=== PATIENT | male | born 1940 | race Caucasian/White ===

== ENCOUNTER 2017-01-27 11:17 | Inpatient (IN) | payer MEDICARE, OTHER ==
[2017-01-20 09:52] LABS: BASOPHILS 0.1 %; BASOPHILS ABSOLUTE 0.01 10/3/uL (0.0-0.16); EOSINOPHILS 4.1 %; EOSINOPHILS ABSOLUTE 0.29 10/3/uL (0.0-0.53); HEMOGLOBIN 12.4 g/dL (13.6-17.8); IMMATURE GRANULOCYTES 0.3 %; IMMATURE GRANULOCYTES ABSOLUTE 0.02 10/3/uL (0.0-0.11); LYMPHOCYTES 26.1 %; LYMPHOCYTES ABSOLUTE 1.84 10/3/uL (0.67-4.30); MEAN CORPUS HGB CONC 34.2 g/dL (32.0-36.0); MEAN CORPUSCULAR HEMOGLOB 31.9 pg (26.0-34.0); MEAN PLATELET VOLUME 9.4 fL (9.2-13.0); MONOCYTES 7.5 %; MONOCYTES ABSOLUTE 0.53 10/3/uL (0.21-1.20); NEUTROPHILS 61.9 %; NEUTROPHILS ABSOLUTE 4.36 10/3/uL (2.02-8.40); RBC DISTRIBUTION WIDTH 14.7 % (12.0-16.0); RED CELL COUNT 3.89 10/6/uL (4.7-6.1); WHITE BLOOD CELLS 7.1 10/3/uL (4.5-10.5)
[2017-01-20 09:54] LABS: HEMATOCRIT 36.3 % (40.0-51.0); MANUAL DIFF NO %; MEAN CORPUSCULAR VOLUME 93.3 fL (80-100); PLATELET COUNT 274 10/3/uL (150-400)
[2017-01-20 10:04] LABS: BUN (BLOOD UREA NITROGEN) 28 MG/DL (6-23); CALCIUM, SERUM 9.6 MG/DL (8.5-10.4); CHLORIDE, SERUM 107 MMOL/L (96-112); CO2 (CARBON DIOXIDE) 29 MMOL/L (24-34); CREATININE 1.98 MG/DL (0.70-1.30); GFR AFRICAN AMERICAN 37 ML/MIN (>=60); GFR NON AFRICAN AMERICAN 32 ML/MIN (>=60); GLUCOSE, SERUM 123 MG/DL (60-99); POTASSIUM, SERUM 4.2 MMOL/L (3.5-5.3); SODIUM, SERUM 143 MMOL/L (135-148)
--- NOTE | ~2017-01-27 | OP ---
Record Of Operation [facility] [address] [place]. [address] NAME: SUREKHA ROBERSON : 44 STATUS : ADM IN [facility]#: [id number] AGE: 76 ADM/REG DATE : 01/27/17 MR#: [id number] REPORT SERV DATE: 01/27/17 DICTATED BY: CLAUDE LIEV DATE: 01/27/17 REPORT STATUS : Draft TRANSCRIBED BY: MODL DATE: 01/27/17 DATE OF PROCEDURE: 01/27/2017 PREOPERATIVE DIAGNOSES: 1. Right upper pole renal mass. 2. History of left kidney cancer. POSTOPERATIVE DIAGNOSES: 1. Right upper pole renal mass. 2. History of left kidney cancer. PROCEDURE PERFORMED: Robot-assisted laparoscopic right partial nephrectomy. SURGEON: Claude Live M.D. ANESTHESIA: General. ESTIMATED BLOOD LOSS: 200 mL. DRAINS: Chapo-Espana, NG tube, and Simmons catheter. SPECIMENS: Right upper pole partial nephrectomy (intraoperative analysis showed clear parenchymal margin). COMPLICATIONS: None. INDICATIONS: Mr. Roberson is a 76-year-old, who had a laparoscopic left partial nephrectomy two and half years ago. During followup imaging he developed a right upper pole mass that has grown during observation, it is now approximately 28 cm. There was no hilar adenopathy. The left kidney is clear. Chest x-ray clear. He presents for robot-assisted laparoscopic left partial nephrectomy. TECHNIQUE: Informed consent was obtained, he brought to the operating room. After a TAP block was performed. The general endotracheal anesthesia was administered. NG tube was placed as well as Simmons catheter was placed in the left lateral decubitus position with bed flexed. Care was taken to pad pressure points. The abdomen was shaved, prepped, and draped in a sterile fashion. Pneumoperitoneum was established with a Veress needle in the right lower quadrant. I did semi linear incision about 3 cm at his umbilicus where there was a small umbilical hernia. A 12-Italian laparoscopic trocar was placed through the hernia. Laparoscopic inspection showed moderate adhesions in the right upper quadrant. I placed four 8 mm robotic trocars in a linear configuration in the right paramedian position. There were significant adhesions between the underside of the liver and the anterior surface of the right kidney. The colon was reflected medially by incising the hepatic flexure. The ureter was left in situ. I dissected the plane between the liver and the anterior kidney bluntly and with Harmonic scalpel. I took down the lateral attachments bluntly with addition of Harmonic scalpel. The hilar vessels were not mobilized. Record Of Operation [facility] [address] [place]. [address] NAME: SUREKHA ROBERSON : 44 STATUS : ADM IN PAT#: [id number] AGE: 76 ADM/REG DATE : 01/27/17 MR#: [id number] REPORT SERV DATE: 01/27/17 DICTATED BY: CLAUDE LIVE DATE: 01/27/17 REPORT STATUS : Draft TRANSCRIBED BY: MODL DATE: 01/27/17 Once the upper pole of the kidney had been satisfactorily mobilized to allow for visualization of the upper pole mass, I docked the da Gage XI robot. The perinephric fat on the upper pole of the kidney was dissected away with Endo Malika and Bovie. The mass was visualized, it was exophytic at the superior most aspect of the upper pole of the right kidney. Marginal partial nephrectomy was scored with a cautery. Partial nephrectomy was performed with cautery. Bleeders at the base of resection were oversewn with interrupted 2- 0 Vicryl utilizing software performance engineer ties. The specimen was bagged and was brought out through the umbilical incision, only minimal fascial aspirating was necessary for this. Intraoperative pathologic analysis showed a clear deep margin. The remaining perinephric fat was imbricated over the bed of the right upper pole partial nephrectomy, I used running 2-0 Vicryl for this. Hemostasis was confirmed. I placed a Chapo-Espana through a 5 mm trocar in the right upper quadrant. This trocar been used as a liver retractor during the case. The robot was undocked. I removed all trocars. The fascia of the umbilical incision was closed after dissecting the remaining hernia sac. This fascial closure was interrupted 0 Vicryl x3. All wounds were irrigated. The skin was closed with a subcuticular Monocryl. He will keep the NG tube overnight as he had significant ileus after his last case. Plan to keep the Chapo-Espana for this five days so as to rule out a urine leak. There was no visible intrusion into the collecting system. He was extubated, taken to recovery room in satisfactory condition. [facility] Claude Live M.D. / [id number] CC: Claude Live M.D.
--- NOTE | ~2017-01-27 | HP ---
History And Physical [address] [place]. [address] NAME: SUREKHA ROBERSON : 44 STATUS : ADM IN [facility]#: [id number] AGE: 76 ADM/REG DATE : 01/27/17 MR#: [id number] REPORT SERV DATE: 01/27/17 DICTATED BY: CLAUDE LIVE DATE: 01/27/17 REPORT STATUS : Draft TRANSCRIBED BY: MODL DATE: 01/27/17 DATE OF ADMISSION: 01/27/2017 CHIEF COMPLAINT: Right kidney mass. HISTORY OF PRESENT ILLNESS: Mr. Roberson is a 76-year-old with history of a left kidney cancer. He had a laparoscopic left partial nephrectomy several years ago. This showed papillary renal cell carcinoma. During followup, there was an enlarging nodule at the right upper pole kidney, it now measures about 2.8 cm, it enhances on MRI and is presumably a metachronous renal cell in the contralateral kidney. He denies any hematuria, fevers, chills, nausea, or vomiting. He has diastasis recti at his prior extraction site. There is also a small umbilical hernia. PAST MEDICAL HISTORY: Gout and hypertension. MEDICATIONS: Tramadol, Zocor, pindolol, Nifedical, and allopurinol. ALLERGIES: NONE KNOWN. SOCIAL HISTORY: . Nonsmoker. REVIEW OF SYSTEMS: No fevers, chills, nausea, vomiting, chest pain, shortness of breath, weight change, back pain, or hematuria. PHYSICAL EXAMINATION: VITAL SIGNS: Blood pressure 132/101, respirations 14, afebrile. GENERAL: Pleasant, 76-year-old, appearing younger than stated age, in no acute distress. HEENT: Sclerae anicteric. LUNGS: Clear. HEART: Regular rate and rhythm. CHEST: Clear anteriorly. ABDOMEN: Soft, nontender, and nondistended. Diastasis recti is present. There is a small umbilical hernia. No rebound or guarding. No right or left CVA tenderness. EXTREMITIES: No lower extremity edema. LABORATORY DATA: Creatinine is 1.5. IMAGING: MRI abdomen from 11/09/2016, shows a 2.8 x 2.8 cm right upper pole renal lesion. This is solid. No hilar lymphadenopathy. No renal vein involvement. Left kidney shows postsurgical changes, but no recurrent malignancy. Chest x-ray from 01/20/2017, shows no acute process. IMPRESSION: 1. History of left kidney cancer. History And Physical [address] [address] NAME: SUREKHA ROBERSON : 44 STATUS : ADM IN PAT#: [id number] AGE: 76 ADM/REG DATE : 01/27/17 MR#: [id number] REPORT SERV DATE: 01/27/17 DICTATED BY: CLAUDE LIVE DATE: 01/27/17 REPORT STATUS : Draft TRANSCRIBED BY: ADRI DATE: 01/27/17 2. 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 PLAN: We will proceed with left robotic-assisted laparoscopic right upper pole partial nephrectomy. Risks of bleeding, infection, tumor recurrence, benign pathologic findings, and urinoma were discussed. He had ileus after his last surgery requiring an NG tube. We will prophylactically leave an NG tube for 24 hours postop. [facility] [place]/ADRI Claude Live M.D. / [id number] CC: Yaritza Wu M.D.
[~2017-01-27 11:17] MED LIST: ADALAT CC60 MG PO; ADVAIR250 INH; ASA5GR PO; COLCH6 PO; CRESTOR10 PO; FLOMAX4 PO; KLONO5; MIRALAX POWDER1 PKT PO; NXL6 PO; PCET PO; PRESERVISION A1 EAC1 PO; STOOL SOFTEN240 MG PO; TRAZ100 PO; ULTRAM50 PO; VISKEN10 PO; VITAMIN D31000 UNIT PO; VOLT75 PO; Z300 PO; ZOCOR40 PO
[2017-01-28 06:59] LABS: BASOPHILS 0 %; EOSINOPHILS 0 %; HEMATOCRIT 34.5 % (40.0-51.0); HEMOGLOBIN 11.8 g/dL (13.6-17.8); IMMATURE GRANULOCYTES 0.3 %; IMMATURE GRANULOCYTES ABSOLUTE 0.03 10/3/uL (0.0-0.11); LYMPHOCYTES 10.4 %; LYMPHOCYTES ABSOLUTE 1.15 10/3/uL (0.67-4.30); MEAN CORPUS HGB CONC 34.2 g/dL (32.0-36.0); MEAN CORPUSCULAR VOLUME 93.5 fL (80-100); MEAN PLATELET VOLUME 9.8 fL (9.2-13.0); MONOCYTES 10.2 %; MONOCYTES ABSOLUTE 1.13 10/3/uL (0.21-1.20); NEUTROPHILS 79.1 %; NEUTROPHILS ABSOLUTE 8.72 10/3/uL (2.02-8.40); PLATELET COUNT 293 10/3/uL (150-400); RBC DISTRIBUTION WIDTH 14.1 % (12.0-16.0); RED CELL COUNT 3.69 10/6/uL (4.7-6.1)
[2017-01-28 07:00] LABS: MANUAL DIFF NO %
[2017-01-28 07:12] LABS: CHLORIDE, SERUM 106 MMOL/L (96-112); POTASSIUM, SERUM 4.2 MMOL/L (3.5-5.3)
[2017-01-28 07:13] LABS: BUN (BLOOD UREA NITROGEN) 28 MG/DL (6-23); CALCIUM, SERUM 8.9 MG/DL (8.5-10.4); CREATININE 1.92 MG/DL (0.70-1.30); GFR AFRICAN AMERICAN 39 ML/MIN (>=60); GFR NON AFRICAN AMERICAN 34 ML/MIN (>=60); GLUCOSE, SERUM 137 MG/DL (60-99)
[2017-01-28 07:14] LABS: CO2 (CARBON DIOXIDE) 24 MMOL/L (24-34); SODIUM, SERUM 136 MMOL/L (135-148)
[2017-01-29 04:33] LABS: HEMATOCRIT 31.5 % (40.0-51.0); HEMOGLOBIN 10.7 g/dL (13.6-17.8)
[2017-01-29 04:45] LABS: BUN (BLOOD UREA NITROGEN) 29 MG/DL (6-23); CALCIUM, SERUM 8.9 MG/DL (8.5-10.4); CHLORIDE, SERUM 108 MMOL/L (96-112); CO2 (CARBON DIOXIDE) 26 MMOL/L (24-34); GFR AFRICAN AMERICAN 42 ML/MIN (>=60); GFR NON AFRICAN AMERICAN 36 ML/MIN (>=60); GLUCOSE, SERUM 96 MG/DL (60-99); POTASSIUM, SERUM 3.9 MMOL/L (3.5-5.3); SODIUM, SERUM 141 MMOL/L (135-148)
== END 2017-01-29 11:14 | disposition home or self-care (01) | DRG 657 ==
LOC: SDC/OF 11:17 → 4SO 18:52
PROVIDERS: Urology
PROC: 8E0W4CZ Robotic Assisted Procedure of Trunk Region, Percutaneous Endoscopic Approach (ICD-10-PCS; principal; 2017-01-27 12:30)
PROC: 0TB04ZZ Excision of Right Kidney, Percutaneous Endoscopic Approach (ICD-10-PCS; principal; 2017-01-27 12:30)
DX: C64.1 Malignant neoplasm of right kidney, except renal pelvis (principal); K50.90 Crohn's disease, unspecified, without complications; I10 Essential (primary) hypertension; Z85.528 Personal history of other malignant neoplasm of kidney; Z88.5 Allergy status to narcotic agent; I12.9 Hypertensive chronic kidney disease with stage 1 through stage 4 chronic kidney disease, or unspecified chronic kidney disease; N18.9 Chronic kidney disease, unspecified; Z90.5 Acquired absence of kidney; M19.90 Unspecified osteoarthritis, unspecified site; M10.9 Gout, unspecified; E78.00 Pure hypercholesterolemia, unspecified; Z87.442 Personal history of urinary calculi; K57.30 Diverticulosis of large intestine without perforation or abscess without bleeding
CPT/HCPCS: 71020; 80048; 83735; 85014; 85018; 85025; 88307; 88331; 93005; A9270-GY; J0690; J2250; J2370; J2405; J2710; J2795; J3010